=== PATIENT | male | born 1930 | race Hispanic/Latino ===

== ENCOUNTER 2020-02-15 11:09 | Observation (INO) | payer MEDICARE ==
[2020-02-15] MEDS ORDERED: SODIUM CHLORIDE IRRI 1000 ML 1,000 ML, .VANCOMYCIN VIAL 1,000 MG IR SCH (11:38)
[2020-02-15] MEDS ORDERED: ceFAZolin/Water 2 GM/20 ML 2 GM/20 ML SYRINGE IV NR (12:00)
[2020-02-15 12:23] LABS: BUN/Creatinine Ratio 20; Blood Urea Nitrogen 20 mg/dL (9-20); Calcium 9.1 mg/dL (8.4-10.2); Hemolysis Index 6
[2020-02-15 12:27] LABS: INR 1.01 (0.87-1.13)
[2020-02-15 12:40] LABS: Hematocrit 40.1 % (35.5-45.6); Hemoglobin 13.5 gm/dl (11.8-15.2); Mean Corpuscular HGB Conc 34 % (32-34); Mean Corpuscular Volume 98 fl (84-94); Platelet Count 194 K/mm3 (140-440); Red Cell Distribution Width 14.3 % (13.2-15.2)
[2020-02-15] MEDS: SODIUM CHLORIDE 0.9% 1000 ML 1,000 ML IV SCH ×2 (13:35→14:30)
[2020-02-15] MEDS ORDERED: SODIUM CHLORIDE IRRI 500 ML 500 ML IR ONE (13:43)
[2020-02-15] MEDS ORDERED: HYDROmorphone 1 MG/1 ML INJ ONE (13:58)
[2020-02-15] MEDS ORDERED: ePHEDrine SULFATE 50 MG/1 ML INJ ONE (13:58)
[2020-02-15] MEDS ORDERED: propofoL 200 MG/20 ML VIAL IV ONE ×3 (13:58)
[2020-02-15] MEDS ORDERED: MIDAZOLAM 2 MG/2 ML INJ ONE (13:58)
[2020-02-15] MEDS ORDERED: KETAMINE/STERILE WATER 50 MG/ML SYRINGE ONE (13:59)
[2020-02-15] MEDS ORDERED: ceFAZolin/Water 2 GM/20 ML 2 GM/20 ML SYRINGE IV ONE (14:23)
--- NOTE | 2020-02-15 14:26 | Anesthesia Day of Surgery ---
Anesthesia Day of Surgery - Day of Surgery Patient Examined: Yes Patient H&P Reviewed: Yes Patient is NPO: Yes
--- NOTE | 2020-02-15 14:26 | Anesthesia Consultation ---
Anesthesia Consult and Med Hx Date of service: 02/15/20 - Airway Anesthetic Teeth Evaluation: Good ROM Head & Neck: Adequate Mental/Hyoid Distance: Adequate Mallampati Class: Class II Intubation Access Assessment: Probably Good - Pulmonary Exam CTA: Yes - Cardiac Exam Cardiac Exam: No Murmur - Pre-Operative Health Status ASA Pre-Surgery Classification: ASA3 Proposed Anesthetic Plan: MAC - Pulmonary Hx Smoking: No Hx Respiratory Symptoms: No - Cardiovascular System Hx Hypertension: Yes Hx Coronary Artery Disease: Yes Hx Heart Attack/AMI: No Hx Percutaneous Transluminal Coronary Angioplasty (PTCA): No Hx Cardia Arrhythmia: Yes (sick sinus syndrome, paroxysmal a-fib) Hx Pacemaker: Yes - Central Nervous System CVA: No - Endocrine Hx Renal Disease: Yes (CKD) Hx Liver Disease: No Hx Insulin Dependent Diabetes: No Hx Non-Insulin Dependent Diabetes: No Hx Thyroid Disease: No - Other Systems Hx Obesity: No - Additional Comments Anesthesia Medical History Comments: No hx anesthetic complications.
[2020-02-15] MEDS: BUPIVACAINE/PF (0.5%) 5 MG/1 ML 30 ML VIAL INFILTRATI ONE ×2 (14:33→14:34)
[2020-02-15] MEDS: LIDOCAINE (1%) 10 MG/1 ML VIAL 20 ML MDV ONE ×2 (14:33→14:34)
[2020-02-15] MEDS ORDERED: SODIUM CHLORIDE 0.9% 1000 ML 1,000 ML ONE (15:08)
[2020-02-15] MEDS ORDERED: .VANCOMYCIN VIAL 1,000 MG in SODIUM CHLORIDE IRRI 1000 ML 1,000 ML IRRIGATION ONE (15:48)
[2020-02-15] MEDS ORDERED: HYDROcodone/ACETAMINOPHEN 5-325 MG TAB PO PRN (16:23)
--- NOTE | 2020-02-15 17:28 | Post Anesthesia Evaluation ---
- Post Anesthesia Evaluation Patient Participated: Yes Airway Patent: Yes Stable Respiratory Function: Yes Nausea/Vomiting: No Temp > 96.8F: Yes Pain Manageable: Yes Adequeate Hydration: Yes Anesthesia Complications: No
--- NOTE | 2020-02-15 17:46 | XRay Report ---
CHEST 1 VIEW 5:17 PM INDICATION / CLINICAL INFORMATION: Postop pacemaker. COMPARISON: None available. FINDINGS: SUPPORT DEVICES: There is a multilead left subclavian transvenous pacemaker with 2 pacing leads overl pablo the right atrial appendage and a single pacing lead overlying the right ventricular apex. HEART / MEDIASTINUM: The heart size and pulmonary vasculature are normal. LUNGS / PLEURA: The lungs are hyperinflated, but clear. No pneumothorax. ADDITIONAL FINDINGS: No significant additional findings. IMPRESSION: Left subclavian transvenous pacemaker without complication. Signer Name: Denilson Alfaro MD Signed: 02/15/2020 5:42 PM Workstation Name: [id number]
[2020-02-15] MEDS: ceFAZolin/NS 1 GM/50 ML 1 GM/50 ML BAG IV SCH (22:12)
[2020-02-16] MEDS: ceFAZolin/NS 1 GM/50 ML 1 GM/50 ML BAG IV SCH (06:12)
--- NOTE | 2020-02-16 11:21 | Short Stay Summary ---
Short Stay Documentation Date of service: 02/16/20 - History H&P: obtained from office - Allergies and Medications Current Medications: Allergies ciprofloxacin Allergy (Verified 02/15/20 11:37) Swelling Home Medications Medication Instructions Recorded Confirmed Last Taken Type Brimonidine 0.15% [Alphagan P 0.15 mg OU TID 02/15/20 02/15/20 02/14/20 History 0.15%] 1 gtt Finasteride [Propecia] 5 mg PO ONCE 02/15/20 02/15/20 02/14/20 History Latanoprost 0.005% [Xalatan 0.005%] 1 drop OP QPM 02/15/20 02/15/20 02/14/20 History 1 drop Losartan [Cozaar] 100 mg PO QDAY 02/15/20 02/15/20 02/14/20 History Timolol 0.5% [Timoptic] 0.5 mg OU BID 02/15/20 02/15/20 02/14/20 History 1 gtt Active Medications Hydrocodone Bitart/Acetaminophen (Hydrocodone/Acetaminophen 5-325 Mg Tab) 1 each PO Q6H PRN PRN Reason: Pain, Moderate (4-6) Sodium Chloride (Nacl 0.9% 1000 Ml) 1,000 mls @ 50 mls/hr IV DIRECT DAVID Last Admin: 02/15/20 14:30 Dose: 50 mls/hr Documented by: - Physical exam General appearance: no acute distress Integumentary: no rash, no growths, no abnormal pigmentation, other (left pectoralis PPM implantation site pressure dressing removed, site covered with telfa and tegaderm dressing, dressing c/d/i, no bleeding or hematoma noted) HEENT: Atraumatic, PERRLA, EOMI Lungs: Clear to auscultation Heart: Regular rate, Normal S1, Normal S2 Gastrointestinal: normal, normoactive bowel sounds Extremities: no ischemia, pulses intact, pulses symmetrical Neurological: Normal gait - Brief post op/procedure progress note Date of procedure: 02/15/20 Pre-op diagnosis: SSS Post-op diagnosis: same Procedure: RA lead insertion - see dictated operative report Estimated blood loss: none Condition: stable - Hospital course Hospital course: pt presented for scheduled elective RA lead placement - see dictated operative report. He subsequently underwent the procedure and was admitted overnight for observation. He remained clinically and hemodynamically stable throughout admission and is medically stable for discharge today. Post-procedure CXR with NAF, no pneumothorax. Device interrogation this AM revealed normal device function. - Disposition Condition at discharge: Good Disposition: [id number] TO HOME OR SELFCARE - Discharge Diagnoses (1) SSS (sick sinus syndrome) Status: Chronic (2) Cardiac pacemaker in situ Status: Chronic (3) HTN (hypertension) Status: Chronic (4) Hyperlipidemia Status: Chronic (5) Atrial fibrillation Status: Chronic Short Stay Discharge Plan Activity: other (as per discharge instructions) Diet: low fat, low cholesterol, low salt Wound: other (as per discharge instructions) Follow up with: KHRIS TIMMONS [Primary Care Provider] - 7 Days ANISHA CEBALLOS MD [Staff Physician] - 7 Days ([facility], post-op device clinic, 02/28/2020 @ 8:00AM)
[2020-02-16 11:45] VITALS: BP 143/53
== END 2020-02-16 13:20 | disposition home or self-care (01) ==
LOC: CATHLABREC 11:09 → 4A 16:23
PROVIDERS: ADMIT Internal Medicine Cardiovascular Disease; ATTEND Internal Medicine Cardiovascular Disease
DX: I49.5 Sick sinus syndrome (principal); T82.110A Breakdown (mechanical) of cardiac electrode, initial encounter; I10 Essential (primary) hypertension; E78.5 Hyperlipidemia, unspecified; I48.91 Unspecified atrial fibrillation; Z95.0 Presence of cardiac pacemaker
CPT/HCPCS: 33216; 36415; 71045; 80048; 85027; 85610; 93005; 96365; 96366; C1898; G0378; J0690; J1170; J2250; J2704; J3370; J3490; J7030; Q9967